=== PATIENT | female | born 1970 | race Caucasian/White ===

== ENCOUNTER → 2025-01-10 | Emergency (ER) | payer SELFPAY ==
[~2025-01-10] VITALS: Ht 154.9 cm; Wt 68.0 kg
[2025-01-10 10:41] VITALS: BP 134/77; TEMP 98.1; O2SAT 97
== END | disposition home or self-care (01) ==
LOC: ER 10:20
DX: S13.4XXA Sprain of ligaments of cervical spine, initial encounter (principal); V43.52XA Car driver injured in collision with other type car in traffic accident, initial encounter; Y93.89 Activity, other specified; Y92.410 Unspecified street and highway as the place of occurrence of the external cause; Y99.9 Unspecified external cause status